=== PATIENT | female | born 1965 | race Caucasian/White ===

== ENCOUNTER → 2020-07-17 | Outpatient (CLI) | payer OTHER ==
[~2020-07-17] MED LIST: IBUPROFEN600 MG PO; NORFLEX 100 MG100 MG PO; OMNICEF 300 MG300 MG PO; ZOFRAN ODT 4 MG4 MG SL; ZOFRAN4 MG PO
== END ==
LOC: EXRD 12:56
DX: R22.42 Localized swelling, mass and lump, left lower limb (principal); I82.432 Acute embolism and thrombosis of left popliteal vein; I82.442 Acute embolism and thrombosis of left tibial vein
CPT/HCPCS: 93971

== ENCOUNTER → 2020-10-29 | Outpatient (CLI) | payer OTHER | LOC: RAD 10:31 | DX: M50.30 Other cervical disc degeneration, unspecified cervical region (principal); M54.5 Low back pain; M51.36 Other intervertebral disc degeneration, lumbar region; M25.512 Pain in left shoulder | CPT/HCPCS: 72050; 72072; 72110; 73030 ==

== ENCOUNTER → 2020-12-07 | Outpatient (CLI) | payer OTHER | LOC: MRI 09:00 | DX: M25.512 Pain in left shoulder (principal); M25.412 Effusion, left shoulder; R93.6 Abnormal findings on diagnostic imaging of limbs | CPT/HCPCS: 73221 ==

== ENCOUNTER 2021-07-31 14:06 | Emergency (ER) | payer OTHER, MEDICAID ==
[2021-07-31 15:18] LABS: HEMOGLOBIN 13.3 gm/dl (12.3-15.3); RED BLOOD COUNT 4.27 M/UL (4.00-5.10); WHITE BLOOD COUNT 7.8 K/UL (4.5-11.0)
[2021-07-31 15:50] LABS: BUN/CREATININE RATIO 23 (0-10)
== END 2021-07-31 21:12 | disposition home or self-care (01) ==
LOC: ER1 14:06
DX: S20.211A Contusion of right front wall of thorax, initial encounter (principal); S80.212A Abrasion, left knee, initial encounter; J44.9 Chronic obstructive pulmonary disease, unspecified; F17.210 Nicotine dependence, cigarettes, uncomplicated; Z86.718 Personal history of other venous thrombosis and embolism; Z90.89 Acquired absence of other organs; Z79.01 Long term (current) use of anticoagulants; Z88.2 Allergy status to sulfonamides; W19.XXXA Unspecified fall, initial encounter
CPT/HCPCS: 71045; 80053; 82550; 82553; 83605; 84484; 85025; 85379; 93005; 99284; Q9967